=== PATIENT | female | born 1995 ===

== ENCOUNTER 2023-07-22 08:24 | Inpatient (IN) | payer OTHER ==
[2023-07-25] MEDS ORDERED: Thrombin 5000 UNITS/5 ML VIAL ONE (06:25)
[2023-07-25] MEDS ORDERED: Vancomycin 1 GM VIAL ONE (06:25)
[2023-07-25] MEDS ORDERED: Bacitracin Zinc Ointment 30 gm TUBE ONE (06:29)
[2023-07-25 06:40] LABS: #Eosinphils 0.3 thou/uL (0.0-0.7); #Monocytes 0.7 thou/uL (0.11-0.59); #Neutrophils 2.8 thou/uL (1.40-6.50); %Basophils 0.6 % (0.0-1.0); %Eosinophils 4.8 % (0.0-10.0); %Lymphocytes 27.3 % (21.0-51.0); %Monocytes 13.4 % (0.0-10.0); %Neutrophils 53.5 % (42.0-75.0); Hematocrit 41.2 % (36.0-47.0); Hemoglobin 13.8 g/dL (12.0-16.0); Mean Corpuscular HGB CONC 33.5 g/dL (32.0-36.0); Mean Corpuscular Hemoglobin 31.4 pg (27.0-31.0); Mean Corpuscular Volume 93.6 fl (78.0-98.0); Mean Platelet Volume 8.5 fL (7.4-10.4); Platelet Count 255 10x3/uL (130-400); RBC Distribution Width 11.8 % (11.5-14.5); White Blood Cell (WBC) Count 5.2 10x3/uL (4.8-10.8)
[2023-07-25 06:51] LABS: BHCG - Serum Negative (NEGATIVE); Pregs Control Background? CLEAR/WHITE (CLR/WHITE); Pregs Control Bar Appear? YES (CONTROL BAR)
[2023-07-25 06:57] LABS: PTT 28.3 sec (22.9-36.1); Prothrombin Time 12.9 sec (12.0-14.7)
[2023-07-25] MEDS ORDERED: CEFAZOLIN 2 GM VIAL ONE (06:58)
[2023-07-25] MEDS ORDERED: Sodium Chloride 0.9% 100 ML ONE (06:58)
[2023-07-25] MEDS ORDERED: PROPOFOL 20 ML ONE ×2 (06:59→10:38)
[2023-07-25] MEDS ORDERED: Rocuronium Bromide 10 MG/ML (10ML VIAL) ONE (07:00)
[2023-07-25] MEDS ORDERED: Fentanyl 250 MCG/5 ML VIAL ONE (07:00)
[2023-07-25] MEDS ORDERED: Lidocaine 1% PF 5 ML VIAL ONE (07:00)
[2023-07-25 07:03] LABS: Anion Gap 13 mmol/L (10-20); BUN (Urea Nitrogen) 7 mg/dL (7.0-18.7); Calc. Creatinine Clearance 118 mL/min (70-130); Calcium 9.4 mg/dL (7.8-10.44); Carbon Dioxide 21 mmol/L (22-29); Chloride 106 mmol/L (98-107); Estimated GFR 117; Glucose 92 mg/dL (70-105); Sodium 136 mmol/L (136-145)
[2023-07-25] MEDS ORDERED: Midazolam HCl 2 mg/2 ml Vial ONE (07:29)
[2023-07-25] MEDS ORDERED: MINERAL OIL/WHITE PETROLATUM 3.5 GM TUBE ONE (08:01)
[2023-07-25] MEDS ORDERED: Dexmedetomidine 200 MCG/2 ML VIAL ONE (08:18)
[2023-07-25] MEDS ORDERED: Dexamethasone 20 MG/5 ML VIAL ONE (08:58)
[2023-07-25] MEDS ORDERED: Scopolamine 1 mg/72 hour Patch ONE (09:44)
[2023-07-25] MEDS ORDERED: Famotidine/PF 20 mg/2ml Vial ONE (09:45)
[2023-07-25] MEDS ORDERED: SUGAMMADEX SODIUM 200 MG/2 ML VIAL ONE (10:34)
[2023-07-25] MEDS ORDERED: PHENYLEPHRINE-NS 100 MCG/ML 10 ML SYRINGE ONE (10:34)
[2023-07-25] MEDS ORDERED: Ondansetron PF 4 MG/2 ML Vial ONE (10:52)
[2023-07-25] MEDS ORDERED: hydrALAZINE 20 MG/ML VIAL SLOW IVP PRN (10:58)
[2023-07-25] MEDS ORDERED: diphenhydrAMINE 50 MG CAP PO PRN (10:58)
[2023-07-25] MEDS ORDERED: Promethazine HCl 25 MG/ML VIAL IM PRN ×2 (10:58→11:12)
[2023-07-25] MEDS ORDERED: Acetaminophen 325 MG TAB PO PRN (10:58)
[2023-07-25] MEDS ORDERED: Ondansetron PF 4 MG/2 ML Vial IVP PRN (10:58)
[2023-07-25] MEDS ORDERED: Docusate 100 MG CAP PO PRN (10:58)
[2023-07-25] MEDS ORDERED: Promethazine 25 MG TAB PO PRN (10:58)
[2023-07-25] MEDS ORDERED: HYDROcodone/Acetaminophen 5/325 mg Tablet PO PRN (11:03)
[2023-07-25] MEDS ORDERED: PACU-Morphine 4MG/ML VIAL SLOW IVP PRN (11:12)
[2023-07-25] MEDS ORDERED: Ondansetron HCl/PF 4 MG/2 ML Vial IVP PRN (11:12)
[2023-07-25] MEDS ORDERED: Morphine Sulfate 2 MG/ML SYRINGE SLOW IVP PRN (11:12)
[2023-07-25] MEDS ORDERED: HYDROmorphone 2 MG/ML VIAL SLOW IVP PRN (11:12)
[2023-07-25] MEDS ORDERED: tiZANidine HCl 4 MG TAB PO SCH (11:45)
[2023-07-25] MEDS ORDERED: fentaNYL 50 mcg/mL 1 mL Vial ONE (11:56)
[2023-07-25] MEDS: Scopolamine 1 mg/72 hour Patch TD SCH (12:29)
[2023-07-25] MEDS: tiZANidine HCl 4 MG TAB PO PRN ×2 (12:35→22:10)
[2023-07-25] MEDS: Sodium Chloride 0.9% 1,000 ML IV SCH (12:35)
[2023-07-25] MEDS: Morphine 2 MG/ML VIAL SLOW IVP PRN ×5 (13:01→22:08)
[2023-07-25] MEDS: HYDROcodone/Acetaminophen 10/325 mg Tablet PO PRN ×2 (13:53→21:06)
[2023-07-25] MEDS: CEFAZOLIN 2 GM in Sodium Chloride 0.9% 100 ML IVPB SCH ×2 (15:10→22:10)
[2023-07-25] MEDS: lamoTRIgine 100 MG TAB PO SCH (15:11)
[2023-07-25] MEDS: Acetaminophen/Codeine 30-300mg Tablet PO PRN (16:46)
[2023-07-25] MEDS: Diazepam 5 MG TAB PO PRN (17:15)
[2023-07-25] MEDS: BuPROPion XL 150 MG ER.TAB PO SCH (20:08)
[2023-07-25] MEDS: ALPRAZolam 0.25 MG TAB PO PRN (20:11)
[2023-07-26] MEDS: Acetaminophen/Codeine 30-300mg Tablet PO PRN (00:07)
[2023-07-26] MEDS: Morphine 2 MG/ML VIAL SLOW IVP PRN (02:17)
[2023-07-26] MEDS: Sodium Chloride 0.9% 1,000 ML IV SCH ×2 (02:18→13:50)
[2023-07-26] MEDS: fentaNYL 50 mcg/mL 1 mL Vial SLOW IVP PRN ×5 (04:04→12:09)
[2023-07-26] MEDS: Diazepam 5 MG TAB PO PRN (06:11)
[2023-07-26] MEDS: HYDROcodone/Acetaminophen 10/325 mg Tablet PO PRN (09:06)
[2023-07-26] MEDS: tiZANidine HCl 4 MG TAB PO PRN (10:01)
[2023-07-26] MEDS: ALPRAZolam 0.25 MG TAB PO PRN (10:52)
[2023-07-26] MEDS ORDERED: Phenol 177 ML BOT PO PRN (14:53)
[2023-07-26] MEDS ORDERED: Pantoprazole 40 MG VIAL IVP SCH (15:00)
[2023-07-26] MEDS ORDERED: Dexamethasone 10 MG/ML VIAL SLOW IVP SCH (15:00)
[2023-07-26] MEDS: Ketorolac Tromethamine 30 MG (1 mL) VIAL IVP PRN ×2 (15:15→20:29)
[2023-07-26] MEDS: lamoTRIgine 100 MG TAB PO SCH (15:16)
[2023-07-26] MEDS ORDERED: diphenhydrAMINE 25 MG CAP PO PRN (16:41)
[2023-07-26] MEDS ORDERED: FENTANYL 500 MCG/10 ML VIAL 2,000 MCG in Sodium Chloride 0.9% 60 ML IV PRN (16:41)
[2023-07-26] MEDS ORDERED: Promethazine HCl 25 MG/ML VIAL IM PRN (16:41)
[2023-07-26] MEDS ORDERED: Naloxone HCl 0.4 mg/ml Vial IV PRN (16:41)
[2023-07-26] MEDS ORDERED: diphenhydrAMINE 50 MG/ML VIAL IM PRN (16:41)
[2023-07-26] MEDS ORDERED: diphenhydrAMINE 50 MG/ML VIAL IVP PRN (16:41)
[2023-07-26] MEDS ORDERED: Communication Order-Pharmacy FS SCH (16:45)
[2023-07-26] MEDS: Fentanyl CADD 100 ML IVPB PRN (17:55)
[2023-07-26] MEDS: Ondansetron PF 4 MG/2 ML Vial IVP PRN (20:07)
[2023-07-26] MEDS: BuPROPion XL 150 MG ER.TAB PO SCH (20:07)
[2023-07-26] MEDS: Dexamethasone 4 mg/ml Vial SLOW IVP SCH (22:49)
[2023-07-27] MEDS: Sodium Chloride 0.9% 1,000 ML IV SCH ×2 (02:31→15:26)
[2023-07-27] MEDS: Dexamethasone 4 mg/ml Vial SLOW IVP SCH ×4 (05:00→22:50)
[2023-07-27] MEDS: Ketorolac Tromethamine 30 MG (1 mL) VIAL IVP PRN (11:00)
[2023-07-27] MEDS: Ondansetron PF 4 MG/2 ML Vial IVP PRN ×2 (11:00→20:00)
[2023-07-27] MEDS: lamoTRIgine 100 MG TAB PO SCH (15:33)
[2023-07-27] MEDS: BuPROPion XL 150 MG ER.TAB PO SCH (19:58)
[2023-07-27] MEDS: Fentanyl CADD 100 ML IVPB PRN (23:21)
[2023-07-28] MEDS: Sodium Chloride 0.9% 1,000 ML IV SCH ×2 (04:18→20:07)
[2023-07-28] MEDS: Dexamethasone 4 mg/ml Vial SLOW IVP SCH ×4 (04:51→20:21)
[2023-07-28] MEDS: Scopolamine 1 mg/72 hour Patch TD SCH (09:07)
[2023-07-28] MEDS: lamoTRIgine 100 MG TAB PO SCH (15:11)
[2023-07-28] MEDS: Docusate 100 MG CAP PO SCH (20:21)
[2023-07-28] MEDS: BuPROPion XL 150 MG ER.TAB PO SCH (20:21)
[2023-07-28] MEDS: Fentanyl CADD 100 ML IVPB PRN (22:52)
[2023-07-29] MEDS: Dexamethasone 4 mg/ml Vial SLOW IVP SCH ×2 (04:52→10:23)
[2023-07-29] MEDS: Docusate 100 MG CAP PO SCH ×2 (08:51→21:06)
[2023-07-29] MEDS: Sodium Chloride 0.9% 1,000 ML IV SCH ×2 (09:17→21:07)
[2023-07-29] MEDS: HYDROcodone/Acetaminophen 5/325 mg Tablet PO PRN ×2 (12:43→18:04)
[2023-07-29] MEDS: lamoTRIgine 100 MG TAB PO SCH (14:53)
[2023-07-29] MEDS: Dexamethasone 1 MG TAB PO SCH ×2 (17:13→21:07)
[2023-07-29] MEDS: Ketorolac Tromethamine 30 MG (1 mL) VIAL IVP PRN (17:16)
[2023-07-29] MEDS: BuPROPion XL 150 MG ER.TAB PO SCH (21:06)
[2023-07-29] MEDS: tiZANidine HCl 4 MG TAB PO PRN (21:11)
[2023-07-30] MEDS: HYDROcodone/Acetaminophen 5/325 mg Tablet PO PRN ×6 (03:55→23:23)
[2023-07-30] MEDS: Dexamethasone 1 MG TAB PO SCH ×4 (03:56→20:58)
[2023-07-30] MEDS: tiZANidine HCl 4 MG TAB PO PRN ×2 (04:45→11:59)
[2023-07-30] MEDS: Docusate 100 MG CAP PO SCH ×2 (08:01→20:57)
[2023-07-30] MEDS ORDERED: Cephalexin 250 MG CAP PO SCH (09:00)
[2023-07-30] MEDS: Ondansetron PF 4 MG/2 ML Vial IVP PRN (11:56)
[2023-07-30] MEDS: fentaNYL 50 mcg/mL 1 mL Vial SLOW IVP PRN ×4 (11:56→19:32)
[2023-07-30] MEDS: lamoTRIgine 100 MG TAB PO SCH (14:05)
[2023-07-30] MEDS: Ketorolac Tromethamine 30 MG (1 mL) VIAL IVP PRN ×2 (14:53→20:57)
[2023-07-30] MEDS: Cephalexin 250 MG CAP PO SCH ×2 (14:59→20:58)
[2023-07-30] MEDS: Sodium Chloride 0.9% 1,000 ML IV SCH (15:42)
[2023-07-30] MEDS ORDERED: Dexamethasone 4 mg/ml Vial SLOW IVP SCH (16:15)
[2023-07-30] MEDS: Diazepam 5 MG TAB PO PRN (16:29)
[2023-07-30] MEDS ORDERED: Dexamethasone 4 mg/ml Vial ONE (16:31)
[2023-07-30] MEDS: BuPROPion XL 150 MG ER.TAB PO SCH (20:57)
[2023-07-31] MEDS: Sodium Chloride 0.9% 1,000 ML IV SCH ×2 (03:20→14:43)
[2023-07-31] MEDS: HYDROcodone/Acetaminophen 5/325 mg Tablet PO PRN ×4 (03:58→21:49)
[2023-07-31] MEDS: Diazepam 5 MG TAB PO PRN ×2 (03:58→20:11)
[2023-07-31] MEDS: Cephalexin 250 MG CAP PO SCH ×2 (03:59→09:16)
[2023-07-31] MEDS: Dexamethasone 1 MG TAB PO SCH ×2 (03:59→09:16)
[2023-07-31] MEDS: Ondansetron PF 4 MG/2 ML Vial IVP PRN (09:09)
[2023-07-31] MEDS: Docusate 100 MG CAP PO SCH ×2 (09:17→20:11)
[2023-07-31] MEDS: Ketorolac Tromethamine 30 MG (1 mL) VIAL IVP PRN (09:21)
[2023-07-31 10:34] VITALS: BMI 23.3
[2023-07-31] MEDS: Scopolamine 1 mg/72 hour Patch TD SCH (12:11)
[2023-07-31 12:41] LABS: Hematocrit 40.2 % (36.0-47.0); Hemoglobin 13.6 g/dL (12.0-16.0); Mean Corpuscular HGB CONC 33.8 g/dL (32.0-36.0); Mean Corpuscular Hemoglobin 31.3 pg (27.0-31.0); Mean Corpuscular Volume 92.4 fl (78.0-98.0); Mean Platelet Volume 8.5 fL (7.4-10.4); Platelet Count 352 10x3/uL (130-400); RBC Distribution Width 11.7 % (11.5-14.5); Red Blood Cell (RBC) Count 4.35 mill/uL (4.20-5.40); White Blood Cell (WBC) Count 12.9 10x3/uL (4.8-10.8)
[2023-07-31 13:26] LABS: Phosphorus 3.2 mg/dL (2.3-4.7)
[2023-07-31 13:28] LABS: Anion Gap 12 mmol/L (10-20); BUN (Urea Nitrogen) 7 mg/dL (7.0-18.7); Calc. Creatinine Clearance 146 mL/min (70-130); Calcium 9.5 mg/dL (7.8-10.44); Carbon Dioxide 27 mmol/L (22-29); Chloride 100 mmol/L (98-107); Estimated GFR 127; Glucose 113 mg/dL (70-105); Potassium 3.5 mmol/L (3.5-5.1); Sodium 135 mmol/L (136-145)
[2023-07-31] MEDS ORDERED: CEFAZOLIN 1 GM VIAL SLOW IVP SCH (14:00)
[2023-07-31] MEDS: CEFAZOLIN 1 GM in Sodium Chloride 0.9% 100 ML IVPB SCH ×2 (14:45→21:50)
[2023-07-31] MEDS: lamoTRIgine 100 MG TAB PO SCH (14:48)
[2023-07-31] MEDS: Dexamethasone 4 mg/ml Vial SLOW IVP SCH ×2 (14:49→20:11)
[2023-07-31] MEDS ORDERED: Dexamethasone 1 MG TAB PO SCH (16:00)
[2023-07-31] MEDS: BuPROPion XL 150 MG ER.TAB PO SCH (20:11)
[2023-08-01] MEDS: HYDROcodone/Acetaminophen 5/325 mg Tablet PO PRN ×3 (03:26→20:12)
[2023-08-01] MEDS: Dexamethasone 4 mg/ml Vial SLOW IVP SCH ×4 (03:27→20:12)
[2023-08-01] MEDS: Sodium Chloride 0.9% 1,000 ML IV SCH ×2 (03:31→16:06)
[2023-08-01] MEDS: CEFAZOLIN 1 GM in Sodium Chloride 0.9% 100 ML IVPB SCH (05:40)
[2023-08-01] MEDS: Docusate 100 MG CAP PO SCH ×2 (09:17→20:11)
[2023-08-01] MEDS ORDERED: Lidocaine 1% (PF) 30 ML VIAL ONE (11:13)
[2023-08-01] MEDS: fentaNYL 50 mcg/mL 1 mL Vial SLOW IVP PRN (11:46)
[2023-08-01] MEDS: Ondansetron PF 4 MG/2 ML Vial IVP PRN (11:53)
[2023-08-01] MEDS: Diazepam 5 MG TAB PO PRN ×2 (12:28→20:11)
[2023-08-01] MEDS: lamoTRIgine 100 MG TAB PO SCH (14:31)
[2023-08-01] MEDS: CEFAZOLIN 2 GM in Sodium Chloride 0.9% 100 ML IVPB SCH ×2 (15:10→21:17)
[2023-08-01] MEDS: BuPROPion XL 150 MG ER.TAB PO SCH (20:11)
[2023-08-02] MEDS: HYDROcodone/Acetaminophen 5/325 mg Tablet PO PRN ×5 (00:24→22:13)
[2023-08-02] MEDS: Diazepam 5 MG TAB PO PRN ×2 (04:05→17:34)
[2023-08-02] MEDS: Dexamethasone 4 mg/ml Vial SLOW IVP SCH ×4 (04:05→21:22)
[2023-08-02] MEDS: CEFAZOLIN 2 GM in Sodium Chloride 0.9% 100 ML IVPB SCH ×3 (05:31→21:29)
[2023-08-02] MEDS: Sodium Chloride 0.9% 1,000 ML IV SCH ×2 (07:14→20:55)
[2023-08-02] MEDS: Docusate 100 MG CAP PO SCH ×2 (09:10→21:21)
[2023-08-02] MEDS: lamoTRIgine 100 MG TAB PO SCH (15:35)
[2023-08-02] MEDS: Milk Of Magnesia 30 ML UDCUP PO PRN (17:34)
[2023-08-02] MEDS: Cephalexin 250 MG CAP PO SCH (18:56)
[2023-08-02] MEDS: BuPROPion XL 150 MG ER.TAB PO SCH (21:21)
[2023-08-03] MEDS: Dexamethasone 4 mg/ml Vial SLOW IVP SCH ×4 (04:26→19:53)
[2023-08-03] MEDS: Diazepam 5 MG TAB PO PRN ×2 (04:26→19:53)
[2023-08-03] MEDS: CEFAZOLIN 2 GM in Sodium Chloride 0.9% 100 ML IVPB SCH ×3 (06:04→21:33)
[2023-08-03] MEDS: HYDROcodone/Acetaminophen 5/325 mg Tablet PO PRN ×3 (06:05→14:15)
[2023-08-03] MEDS: Docusate 100 MG CAP PO SCH ×2 (09:51→19:53)
[2023-08-03] MEDS: Scopolamine 1 mg/72 hour Patch TD SCH (12:18)
[2023-08-03] MEDS: Sodium Chloride 0.9% 1,000 ML IV SCH ×2 (12:20→21:34)
[2023-08-03] MEDS: Milk Of Magnesia 30 ML UDCUP PO PRN (14:09)
[2023-08-03] MEDS: lamoTRIgine 100 MG TAB PO SCH (14:10)
[2023-08-03] MEDS ORDERED: Ketorolac Tromethamine 10 MG TAB PO SCH (16:45)
[2023-08-03] MEDS: BuPROPion XL 150 MG ER.TAB PO SCH (19:53)
[2023-08-03] MEDS ORDERED: HYDROcodone/Acetaminophen 7.5/325 mg Tablet PO PRN (20:17)
[2023-08-03] MEDS: HYDROcodone/Acetaminophen 7.5/325 mg Tablet PO PRN (21:33)
[2023-08-04] MEDS: Dexamethasone 4 mg/ml Vial SLOW IVP SCH ×4 (04:03→20:37)
[2023-08-04] MEDS: HYDROcodone/Acetaminophen 7.5/325 mg Tablet PO PRN ×4 (04:03→20:37)
[2023-08-04 04:43] LABS: #Monocytes 1.2 thou/uL (0.11-0.59); #Neutrophils 11.4 thou/uL (1.40-6.50); %Basophils 0.2 % (0.0-1.0); %Eosinophils 0.1 % (0.0-10.0); %Lymphocytes 11.1 % (21.0-51.0); %Monocytes 8.1 % (0.0-10.0); Hematocrit 40.5 % (36.0-47.0); Hemoglobin 13.1 g/dL (12.0-16.0); Mean Corpuscular HGB CONC 32.3 g/dL (32.0-36.0); Mean Corpuscular Hemoglobin 30.5 pg (27.0-31.0); Mean Corpuscular Volume 94.2 fl (78.0-98.0); Mean Platelet Volume 8.5 fL (7.4-10.4); Platelet Count 405 10x3/uL (130-400); RBC Distribution Width 11.9 % (11.5-14.5); White Blood Cell (WBC) Count 14.4 10x3/uL (4.8-10.8)
[2023-08-04 05:00] LABS: BUN (Urea Nitrogen) 10 mg/dL (7.0-18.7); Calc. Creatinine Clearance 129 mL/min (70-130); Calcium 9.7 mg/dL (7.8-10.44); Carbon Dioxide 27 mmol/L (22-29); Estimated GFR 123; Glucose 101 mg/dL (70-105); Sodium 136 mmol/L (136-145)
[2023-08-04 05:21] LABS: Anion Gap 10 mmol/L (10-20); Chloride 103 mmol/L (98-107); Potassium 4.2 mmol/L (3.5-5.1)
[2023-08-04] MEDS: CEFAZOLIN 2 GM in Sodium Chloride 0.9% 100 ML IVPB SCH ×3 (06:56→20:36)
[2023-08-04] MEDS: Docusate 100 MG CAP PO SCH ×2 (07:43→20:37)
[2023-08-04] MEDS: Diazepam 5 MG TAB PO PRN (07:43)
[2023-08-04] MEDS: Milk Of Magnesia 30 ML UDCUP PO PRN (07:43)
[2023-08-04] MEDS: Sodium Chloride 0.9% 1,000 ML IV SCH (12:33)
[2023-08-04] MEDS: lamoTRIgine 100 MG TAB PO SCH (14:03)
[2023-08-04] MEDS ORDERED: Bisacodyl 5 MG TAB PO PRN (14:24)
[2023-08-04] MEDS ORDERED: Polyethylene Glycol 3350 17 GM Packet PO PRN (14:24)
[2023-08-04] MEDS ORDERED: Bisacodyl 10 MG SUPP PR PRN (14:24)
[2023-08-04] MEDS: fentaNYL 50 mcg/mL 1 mL Vial SLOW IVP PRN (18:36)
[2023-08-04] MEDS: BuPROPion XL 150 MG ER.TAB PO SCH (20:37)
[2023-08-05] MEDS: Sodium Chloride 0.9% 1,000 ML IV SCH (03:48)
[2023-08-05] MEDS: Dexamethasone 4 mg/ml Vial SLOW IVP SCH ×2 (04:08→09:10)
[2023-08-05] MEDS: CEFAZOLIN 2 GM in Sodium Chloride 0.9% 100 ML IVPB SCH (06:06)
[2023-08-05 07:33] VITALS: TEMP 98.3
[2023-08-05] MEDS: Docusate 100 MG CAP PO SCH (09:11)
[2023-08-05] MEDS: Milk Of Magnesia 30 ML UDCUP PO PRN (09:19)
[2023-08-05 11:55] VITALS: BP 105/68
[2023-08-05] MEDS ORDERED: Scopolamine 1 mg/72 hour Patch TD SCH (12:15)
[2023-08-05] MEDS: HYDROcodone/Acetaminophen 7.5/325 mg Tablet PO PRN (14:44)
== END 2023-08-05 15:02 | disposition home or self-care (01) | DRG 26 ==
LOC: SURG A 07-25 05:39 → CCU 07-25 12:07 → EDSTATUS 07-25 15:57 → SJJU 07-30 17:47
PROVIDERS: ADMIT Surgery; ATTEND Surgery
PROC: 00NC0ZZ Release Cerebellum, Open Approach (ICD-10-PCS; principal; 2023-07-25)
PROC: 00U207Z Supplement Dura Mater with Autologous Tissue Substitute, Open Approach (ICD-10-PCS; 2023-07-25)
PROC: 0JXL0ZC Transfer Right Upper Leg Subcutaneous Tissue and Fascia with Skin, Subcutaneous Tissue and Fascia, Open Approach (ICD-10-PCS; 2023-07-25)
DX: G93.5 Compression of brain (principal); G96.08 Other cranial cerebrospinal fluid leak; Y83.8 Other surgical procedures as the cause of abnormal reaction of the patient, or of later complication, without mention of misadventure at the time of the procedure; H53.149 Visual discomfort, unspecified; R11.2 Nausea with vomiting, unspecified
CPT/HCPCS: 36415; 36416; 80048; 83735; 84100; 84703; 85025; 85027; 85610; 85730; 93005; 93010; A4314; C1889; C9113; J0690; J1100; J1200; J1885; J2001; J2250; J2272; J2405; J2704; J3010; J3370; J3490; J7050; J8540; S0028